=== PATIENT | female | born 1970 | race Caucasian/White ===

== ENCOUNTER 2022-10-08 22:05 | Emergency (ER) | payer BC ==
[2022-10-08] MEDS ORDERED: Ketorolac 60 MG/2 ML SDV IM ONE (22:31)
[2022-10-08] MEDS ORDERED: HYDROmorphone 1 MG/ML Syringe IM ONE (22:31)
== END 2022-10-08 22:51 | disposition home or self-care (01) ==
LOC: MERGE 22:05 → JD.ED 22:05
DX: M54.12 Radiculopathy, cervical region (principal); I10 Essential (primary) hypertension; J45.909 Unspecified asthma, uncomplicated; E66.9 Obesity, unspecified; Z68.32 Body mass index [BMI] 32.0-32.9, adult; Z86.16 Personal history of COVID-19
CPT/HCPCS: 96372; 99283; J1170; J1885; 99284

== ENCOUNTER 2023-07-03 20:22 | Emergency (ER) | payer BC ==
[2023-07-03] MEDS ORDERED: Diphtheria,Pertussis(Acell),Tetanus Vaccine 0.5 ML Syringe IM ONE (20:48)
[2023-07-03] MEDS ORDERED: Lidocaine 1% 10 ML MDV INJECT ONE (20:54)
== END 2023-07-03 22:09 | disposition home or self-care (01) ==
LOC: JD.ED 20:22
DX: S61.210A Laceration without foreign body of right index finger without damage to nail, initial encounter (principal); I10 Essential (primary) hypertension; J45.909 Unspecified asthma, uncomplicated; E66.9 Obesity, unspecified; Z68.36 Body mass index [BMI] 36.0-36.9, adult; Z23 Encounter for immunization; Z86.16 Personal history of COVID-19; Z79.899 Other long term (current) drug therapy; W26.0XXA Contact with knife, initial encounter
CPT/HCPCS: 12001; 90471; 90715; 99282; 99282-25; J3490